=== PATIENT | male | born 1980 | race Caucasian/White ===

== ENCOUNTER 2016-07-21 17:49 | Emergency (ER) | payer BC ==
[~2016-07-21] VITALS: Ht 182.9 cm; Wt 77.3 kg
[~2016-07-21 17:49] MED LIST: ADVAIR 250/28 DISKU1 IH; ADVIL200 MG PO; ALLEGRA ODT30 MG PO; AMOXICILLIN 8751 TAB PO; BALSALAZIDE DI750 MG PO; CETIRIZINE; CLARITIN REDITA10 MG PO; COLOZAL; CONSTULOSE 20G/30ML PO; DUO-KAPS1 CAP PO; LAMICTAL 25MG T25 MG PO; LEVAQUIN 5500 MG/TA1 PO; MILK THISTLE150 MG PO; MILK THISTLE500 MG; MULTIPLE VITAMI1 CAP PO; NATURE'S BLEND100 M2 PO; OXYCODONE5 M1 PO; PROBIOTIC FORMU1 CAP PO; REVIA 50MG TABL50 MG PO; VALIUM 5MG T5 MG/TAB PO; XIFAXAN550 MG PO; [UNRECOGNIZED DRUG - OTHER]
[2016-07-21 18:05] VITALS: TEMP 98.1
[2016-07-21 18:57] LABS: BASO % 1.1 % (0.0-2.0); EOS # 0.2 (0.0-0.7); EOS % 6.4 % (0-4.0); GRAN # 1.3 (1.4-6.5); HEMATOCRIT 40.1 % (42.0-52.0); HEMOGLOBIN 14.1 g/dl (13.5-18.0); LYMPH # 1.1 (1.2-3.4); LYMPH % 37.6 % (20.0-51.0); MEAN CELL VOLUME 95 fl (80.0-100.0); MEAN CORPUSCULAR HEMOGLOBIN 34 pg (27.0-31.0); MEAN CORPUSCULAR HGB CONC 35 g/dl (33.0-37.0); MEAN PLATELET VOLUME 9.8 fl (7.4-10.4); MONO # 0.3 (0.1-0.6); MONO % 9.9 % (1.7-9.3); PLATELET COUNT 159 K/mm3 (130-400); RED BLOOD COUNT 4.21 M/mm3 (4.20-5.60); REDCELL DISTRIBUTION WIDTH-CV 13.2 % (11.5-14.5); WHITE BLOOD COUNT 2.8 K/mm3 (4.8-10.8)
[2016-07-21 19:02] LABS: INR 0.8 (0.8-3.0); PROTHROMBIN TIME 9.2 SECONDS (9.7-12.8)
[2016-07-21 19:05] LABS: PARTIAL THROMBOPLASTIN TIME 31.1 SECONDS (26.0-37.0)
[2016-07-21 19:10] LABS: ADJUSTED CALCIUM 8.1 mg/dL (8.4-10.2); ALBUMIN 4.1 gm/dL (3.5-5.0); BILIRUBIN,TOTAL 1.5 mg/dL (0.0-1.0); CALCIUM 8.2 mg/dL (8.4-10.2); CREATININE, serum 0.72 mg/dL (0.66-1.25); MAGNESIUM 2.1 mg/dL (1.6-2.3); POTASSIUM 3.6 mmol/L (3.4-5.0); TOTAL PROTEIN 7.4 gm/dL (6.4-8.2)
[2016-07-21 19:12] LABS: ARTERIAL BLOOD GAS pH 7.37 (7.35-7.45)
[2016-07-21 19:13] LABS: ALLEN TEST YES; ALLENS TEST RESULT PASS; ARTERIAL BLD GAS O2 SATURATION 97.4 % (92-100); ARTERIAL BLD GAS TCO2 CT 27.8; ARTERIAL BLOOD GAS BASE EXCESS 0.6 (-2-2); ARTERIAL BLOOD GAS HCO3 26.3 meq/L (22-26); ARTERIAL BLOOD GAS PO2 122.4 mmHg (80-100); ATS? YES
[2016-07-22 08:28] VITALS: BP 139/77; PULSE 87
== END 2016-07-22 08:28 | disposition home or self-care (01) ==
LOC: COL.ER 17:49
PROVIDERS: Emergency Medicine
DX: F10.220 Alcohol dependence with intoxication, uncomplicated (principal); Y90.8 Blood alcohol level of 240 mg/100 ml or more
CPT/HCPCS: J3411; J7030

== ENCOUNTER 2016-10-11 15:02 | Emergency (ER) | payer BC ==
[~2016-10-11] VITALS: Ht 177.8 cm; Wt 69.1 kg
[2016-10-11 15:04] VITALS: TEMP 97.8
[2016-10-11 16:19] LABS: ADJUSTED CALCIUM 9.5 mg/dL (8.4-10.2); ALANINE AMINOTRANSFERASE 41 U/L (21-72); ALBUMIN 4.2 gm/dL (3.5-5.0); ALKALINE PHOSPHATASE 432 U/L (50-136); ANION GAP 10 mmol/L (7-16); BILIRUBIN,TOTAL 1.8 mg/dL (0.0-1.0); BLOOD UREA NITROGEN 10 mg/dL (9-20); CALCIUM 9.7 mg/dL (8.4-10.2); CARBON DIOXIDE 30 mmol/L (22-30); CHLORIDE 98 mmol/L (98-107); CREATININE, serum 0.65 mg/dL (0.66-1.25); GLUCOSE 177 mg/dL (74-106); LIPASE 78 U/L (23-300); MAGNESIUM 1.8 mg/dL (1.6-2.3); PHOSPHOROUS 4.1 mg/dL (2.5-4.5); SODIUM 138 mmol/L (137-145); TOTAL PROTEIN 6.8 gm/dL (6.4-8.2)
[2016-10-11 16:20] LABS: BASO % 0.6 % (0.0-2.0); EOS % 0.3 % (0-4.0); GRAN # 2.5 (1.4-6.5); GRAN % 70.5 % (42.2-75.2); LYMPH # 0.7 (1.2-3.4); LYMPH % 18.7 % (20.0-51.0); MEAN CELL VOLUME 93 fl (80.0-100.0); MEAN CORPUSCULAR HEMOGLOBIN 33 pg (27.0-31.0); MEAN CORPUSCULAR HGB CONC 35 g/dl (33.0-37.0); MEAN PLATELET VOLUME 10.2 fl (7.4-10.4); MONO # 0.3 (0.1-0.6); MONO % 9.6 % (1.7-9.3); PLATELET COUNT 218 K/mm3 (130-400); RED BLOOD COUNT 3.94 M/mm3 (4.20-5.60); REDCELL DISTRIBUTION WIDTH-CV 12.8 % (11.5-14.5); WHITE BLOOD COUNT 3.5 K/mm3 (4.8-10.8)
[2016-10-11 16:28] LABS: HEMATOCRIT 36.7 % (42.0-52.0)
[2016-10-11 16:30] LABS: PROTHROMBIN TIME 11.5 SECONDS (9.7-12.8)
[2016-10-11] MEDS ORDERED: ANTABUSE500 MG PO (16:30)
[2016-10-11] MEDS ORDERED: DESYREL 50MG50 MG PO (16:30)
[2016-10-11 16:35] LABS: PH 7 (5-8); SQUAMOUS EPITHELIAL None Seen /hpf; URINE APPEARANCE Cloudy; URINE BACTERIA None Seen /hpf; URINE BILIRUBIN Negative (NEGATIVE); URINE BLOOD Negative (NEGATIVE); URINE COLOR Amber; URINE GLUCOSE Negative (NEGATIVE); URINE KETONE Negative (NEGATIVE); URINE UROBILINOGEN Negative (NEGATIVE); URINE WBC None Seen /hpf
[2016-10-11 16:36] LABS: AMPHETAMINE URINE NEGATIVE; BARBITURATES URINE NEGATIVE; BENZODIAZEPINES URINE NEGATIVE; BUPRENORPHINE URINE NEGATIVE; METHADONE URINE NEGATIVE; OPIATES URINE NEGATIVE; OXYCODONE URINE NEGATIVE; PHENCYCLIDINE URINE NEGATIVE; PROPOXYPHENE URINE NEGATIVE; THC CANNABINOIDS URINE NEGATIVE
[2016-10-12 00:04] VITALS: BP 154/96; PULSE 58
== END 2016-10-12 00:06 ==
LOC: COL.ER 15:02
PROVIDERS: Family Medicine
DX: F29 Unspecified psychosis not due to a substance or known physiological condition (principal); R41.82 Altered mental status, unspecified
CPT/HCPCS: J7030

== ENCOUNTER → 2016-10-27 | Outpatient (CLI) | payer BC ==
[~2016-10-27] MED LIST changes: +ANTABUSE500 MG PO; +DESYREL 50MG50 MG PO
== END ==
LOC: BHSO 15:33
DX: F41.1 Generalized anxiety disorder (principal)

== ENCOUNTER → 2016-12-08 | Outpatient (CLI) | payer BC | LOC: BHSO 15:15 | DX: F41.1 Generalized anxiety disorder (principal) ==

== ENCOUNTER 2017-06-22 08:10 | Day surgery (SDC) | payer BC ==
[~2017-06-22] VITALS: Ht 177.8 cm; Wt 71.5 kg
[2017-06-22 08:36] VITALS: BP 115/86; PULSE 72; TEMP 98.1
[2017-06-22 09:25] VITALS: BP 112/70; PULSE 72; TEMP 97
[2017-06-22 09:40] VITALS: BP 104/74; PULSE 71
[2017-06-22 09:55] VITALS: BP 108/72; PULSE 69
[2017-06-22 10:15] VITALS: BP 112/82; PULSE 68
== END 2017-06-22 11:00 ==
LOC: SDCO 08:10
DX: K51.90 Ulcerative colitis, unspecified, without complications (principal); K63.89 Other specified diseases of intestine; J45.909 Unspecified asthma, uncomplicated; R19.7 Diarrhea, unspecified; K83.0 Cholangitis; R94.5 Abnormal results of liver function studies; R74.8 Abnormal levels of other serum enzymes; L29.9 Pruritus, unspecified; R16.0 Hepatomegaly, not elsewhere classified; G93.40 Encephalopathy, unspecified
CPT/HCPCS: J2250; J2405; J3010; J7030

== ENCOUNTER 2017-09-20 16:26 | Emergency (ER) | payer BC ==
[~2017-09-20] VITALS: Ht 177.8 cm; Wt 77.3 kg
[2017-09-20 16:30] VITALS: TEMP 97.9
[2017-09-20 17:05] LABS: BASO # 0.1 (0.0-0.2); EOS # 0.1 (0.0-0.7); EOS % 1.8 % (0-4.0); GRAN # 3.1 (1.4-6.5); GRAN % 60.9 % (42.2-75.2); HEMATOCRIT 41.4 % (42.0-52.0); HEMOGLOBIN 14.4 g/dl (13.5-18.0); LYMPH # 1.6 (1.2-3.4); LYMPH % 31.6 % (20.0-51.0); MEAN CELL VOLUME 91 fl (80.0-100.0); MEAN CORPUSCULAR HEMOGLOBIN 32 pg (27.0-31.0); MEAN CORPUSCULAR HGB CONC 35 g/dl (33.0-37.0); MEAN PLATELET VOLUME 10.4 fl (7.4-10.4); MONO # 0.2 (0.1-0.6); MONO % 4.5 % (1.7-9.3); PLATELET COUNT 187 K/mm3 (130-400); PROTHROMBIN TIME 11.3 SECONDS (9.7-12.8); RED BLOOD COUNT 4.53 M/mm3 (4.20-5.60); REDCELL DISTRIBUTION WIDTH-CV 12.3 % (11.5-14.5)
[2017-09-20 17:15] LABS: ALANINE AMINOTRANSFERASE 151 U/L (21-72); ALBUMIN 4.4 gm/dL (3.5-5.0); ALKALINE PHOSPHATASE 383 U/L (50-136); ANION GAP 15 mmol/L (7-16); AST,SGOT 114 U/L (15-37); BILIRUBIN,TOTAL 1.2 mg/dL (0.0-1.0); BLOOD UREA NITROGEN 12 mg/dL (9-20); CALCIUM 8.7 mg/dL (8.4-10.2); CARBON DIOXIDE 26 mmol/L (22-30); CHLORIDE 105 mmol/L (98-107); CREATININE, serum 0.72 mg/dL (0.66-1.25); GLUCOSE 98 mg/dL (74-106); LIPASE 203 U/L (23-300); POTASSIUM 3.6 mmol/L (3.4-5.0); SODIUM 146 mmol/L (137-145); TOTAL PROTEIN 7.5 gm/dL (6.4-8.2)
[2017-09-20 17:47] LABS: AMMONIA < 9 umol/L (11-35)
[2017-09-20 18:31] LABS: COLLECTION METHOD CLEAN CATCH
[2017-09-20 18:38] LABS: PH 6 (5-8); SQUAMOUS EPITHELIAL None Seen /hpf; URINE APPEARANCE Clear; URINE BACTERIA None Seen /hpf; URINE BILIRUBIN Negative (NEGATIVE); URINE BLOOD Negative (NEGATIVE); URINE COLOR Straw; URINE GLUCOSE Negative (NEGATIVE); URINE KETONE Negative (NEGATIVE); URINE LEUKOCYTE ESTERASE Negative (NEGATIVE); URINE NITRATE Negative (NEGATIVE); URINE PROTEIN(semi-quant) Negative (NEGATIVE); URINE RBC None Seen /hpf; URINE UROBILINOGEN Negative (NEGATIVE)
[2017-09-20 21:18] VITALS: BP 132/74; PULSE 90
== END 2017-09-20 21:18 | disposition home or self-care (01) ==
LOC: COL.ER 16:26
PROVIDERS: Emergency Medicine
DX: F10.129 Alcohol abuse with intoxication, unspecified (principal); K83.0 Cholangitis; Y90.8 Blood alcohol level of 240 mg/100 ml or more; Z87.19 Personal history of other diseases of the digestive system
CPT/HCPCS: J7030

== ENCOUNTER 2018-09-13 08:05 | Day surgery (SDC) | payer BC ==
[~2018-09-13] VITALS: Ht 177.8 cm; Wt 74.1 kg
[2018-09-13] MEDS ORDERED: ZYRTEC 10MG10 MG PO (08:45)
[2018-09-13] MEDS ORDERED: CLARITIN 1010 MG/TAB PO (08:45)
[2018-09-13 09:27] VITALS: BP 126/87; PULSE 67; TEMP 98.7
[2018-09-13 10:55] VITALS: BP 117/81; PULSE 67; TEMP 97.8
[2018-09-13 11:10] VITALS: BP 121/78; PULSE 93
[2018-09-13 11:25] VITALS: BP 113/90; PULSE 76
--- NOTE | 2018-09-13 11:38 | NUR ---
Patient arrives from OR via cart. VS started. juice, muffin and pudding given. cALL LIGHT WITHIN REACH. WILL CONTINUE TO MONITOR.
[2018-09-13 11:40] VITALS: BP 121/78; PULSE 78
--- NOTE | 2018-09-13 11:55 | NUR ---
PATIENT LEFT AMBULATORY WITH STEADY GAIT. DISCHARGE INSTRUCTIONS GIVEN, VERBALIZED UNDERSTANDING.
== END 2018-09-13 11:40 | disposition home or self-care (01) ==
LOC: SDCO 08:05
DX: K51.90 Ulcerative colitis, unspecified, without complications (principal); K63.89 Other specified diseases of intestine; K83.01 Primary sclerosing cholangitis; J42 Unspecified chronic bronchitis; R17 Unspecified jaundice; Z79.899 Other long term (current) drug therapy; G93.40 Encephalopathy, unspecified; R06.83 Snoring
CPT/HCPCS: J2250; J2704; J3010; J7120

== ENCOUNTER 2018-10-13 11:44 | Emergency (ER) | payer BC ==
[~2018-10-13] VITALS: Ht 175.3 cm; Wt 75.0 kg
[~2018-10-13 11:44] MED LIST changes: +CLARITIN 1010 MG/TAB PO; +ZYRTEC 10MG10 MG PO
[2018-10-13 12:02] VITALS: TEMP 99.1
[2018-10-13] MEDS ORDERED: SYNTHROID 0.10.15 MG (12:16)
[2018-10-13] MEDS ORDERED: KAPSPARGO SPRI100 MG (12:16)
[2018-10-13] MEDS ORDERED: MIRALAX PA17 GM/Dose (12:17)
[2018-10-13] MEDS ORDERED: APRESOLINE 25MG25 MG (12:17)
[2018-10-13] MEDS ORDERED: PLAVIX 75MG TAB75 MG (12:17)
[2018-10-13] MEDS ORDERED: LEXAPRO 10MG10 MG (12:17)
[2018-10-13] MEDS ORDERED: BENICAR40 MG (12:18)
[2018-10-13] MEDS ORDERED: MIRAPEX 1MG (12:18)
[2018-10-13] MEDS ORDERED: ASPIRIN 81M81 MG/TA2 (12:18)
[2018-10-13] MEDS ORDERED: ZOCOR 20MG20 MG (12:18)
[2018-10-13] MEDS ORDERED: SEROQUEL 2525 MG/TAB (12:19)
[2018-10-13] MEDS ORDERED: PROSCAR 5MG5 MG (12:19)
[2018-10-13] MEDS ORDERED: FLOMAX 0.40.4 MG/CAP (12:19)
[2018-10-13] MEDS ORDERED: PROTONIX 40MG T40 MG (12:19)
[2018-10-13 12:29] LABS: BASO % 0.9 % (0.0-2.0); EOS % 0.3 % (0-4.0); GRAN # 2.9 (1.4-6.5); GRAN % 83.4 % (42.2-75.2); HEMATOCRIT 41.2 % (42.0-52.0); HEMOGLOBIN 14.5 g/dl (13.5-18.0); LYMPH # 0.2 (1.2-3.4); LYMPH % 6.6 % (20.0-51.0); MEAN CELL VOLUME 95 fl (80.0-100.0); MEAN CORPUSCULAR HEMOGLOBIN 33 pg (27.0-31.0); MEAN CORPUSCULAR HGB CONC 35 g/dl (33.0-37.0); MEAN PLATELET VOLUME 9.8 fl (7.4-10.4); MONO # 0.3 (0.1-0.6); MONO % 8.5 % (1.7-9.3); PLATELET COUNT 116 K/mm3 (130-400); RED BLOOD COUNT 4.35 M/mm3 (4.20-5.60)
[2018-10-13 12:43] LABS: ALBUMIN 4.8 gm/dL (3.5-5.0); BILIRUBIN,TOTAL 7.1 mg/dL (0.0-1.0); C-REACTIVE PROTEIN 0.5 mg/dL (0.0-0.9); CALCIUM 9.7 mg/dL (8.4-10.2); CREATININE, serum 0.67 (0.66-1.25); POTASSIUM 4.3 mmol/L (3.4-5.0)
[2018-10-13 13:03] LABS: INR 1.1 (0.8-3.0); PROTHROMBIN TIME 12.9 SECONDS (9.7-12.8)
[2018-10-13 13:32] LABS: COLLECTION METHOD CLEAN CATCH
[2018-10-13 13:37] LABS: MUCOUS Present /lpf; PH 7 (5-8); SQUAMOUS EPITHELIAL None Seen /hpf; URINE APPEARANCE Clear; URINE BACTERIA Rare /hpf; URINE BILIRUBIN Positive (NEGATIVE); URINE BLOOD Negative (NEGATIVE); URINE COLOR Amber; URINE GLUCOSE Negative (NEGATIVE); URINE KETONE 1+ (NEGATIVE); URINE LEUKOCYTE ESTERASE Negative (NEGATIVE); URINE NITRATE Negative (NEGATIVE); URINE PROTEIN(semi-quant) 1+ (NEGATIVE); URINE RBC 0-2 /hpf; URINE UROBILINOGEN >=4.0 mg/dL (NEGATIVE)
[2018-10-13] MEDS ORDERED: ZOFRAN ODT4 MG PO (14:51)
[2018-10-13 15:00] VITALS: BP 138/82; PULSE 86
== END 2018-10-13 15:01 | disposition home or self-care (01) ==
LOC: COL.ER 11:44
PROVIDERS: Family Medicine
DX: K83.09 Other cholangitis (principal); Z79.02 Long term (current) use of antithrombotics/antiplatelets; Z79.82 Long term (current) use of aspirin; Z87.19 Personal history of other diseases of the digestive system
CPT/HCPCS: J2405; J7030; Q9967

== ENCOUNTER 2021-09-22 14:49 | Emergency (ER) | payer SELFPAY ==
[~2021-09-22] VITALS: Ht 180.3 cm; Wt 72.7 kg
[~2021-09-22 14:49] MED LIST changes: +APRESOLINE 25MG25 MG; +ASPIRIN 81M81 MG/TA2; +BENICAR40 MG; +FLOMAX 0.40.4 MG/CAP; +KAPSPARGO SPRI100 MG; +LEXAPRO 10MG10 MG; +MIRALAX PA17 GM/Dose; +MIRAPEX 1MG; +PLAVIX 75MG TAB75 MG; +PROSCAR 5MG5 MG; +PROTONIX 40MG T40 MG; +SEROQUEL 2525 MG/TAB; +SYNTHROID 0.10.15 MG; +ZOCOR 20MG20 MG; +ZOFRAN ODT4 MG PO
[2021-09-22 15:31] VITALS: TEMP 97.5
[2021-09-22 17:17] LABS: MEAN CELL VOLUME 100 fl (80.0-100.0); MEAN CORPUSCULAR HGB CONC 35 g/dl (33.0-37.0); MEAN PLATELET VOLUME 9.8 fl (7.4-10.4); PLATELET COUNT 181 K/mm3 (130-400); RED BLOOD COUNT 2.46 M/mm3 (4.20-5.60); REDCELL DISTRIBUTION WIDTH-CV 16.2 % (11.5-14.5)
[2021-09-22 17:18] LABS: HEMATOCRIT 24.6 % (42.0-52.0); HEMOGLOBIN 8.7 g/dl (13.5-18.0); MEAN CORPUSCULAR HEMOGLOBIN 35 pg (27-31)
[2021-09-22 17:26] LABS: INR 1.6 (0.8-3.0); PROTHROMBIN TIME 17.6 SECONDS (9.7-12.8)
[2021-09-22 17:32] LABS: MAGNESIUM 1.9 mg/dL (1.6-2.6); PHOSPHOROUS 2.3 mg/dL (2.3-4.7)
[2021-09-22 17:33] LABS: LACTIC ACID 2.2 mmol/L (0.5-2.0)
[2021-09-22 18:00] LABS: BAND 11 % (0-10); LYMPHOCYTE 7 % (20.0-51.0); MYELOCYTE 2 % (0-0); NEUTROPHILS 77 % (42.0-75.2); PLATELET ESTIMATE NORMAL (NORMAL)
[2021-09-22 18:01] LABS: ANISOCYTOSIS 1+
[2021-09-22 18:19] LABS: COLLECTION METHOD CLEAN CATCH
[2021-09-22 18:28] LABS: ALANINE AMINOTRANSFERASE 54 U/L (0-55); ALBUMIN 1.7 gm/dL (3.5-5.0); ALKALINE PHOSPHATASE 1106 U/L (40-150); ANION GAP 13 mmol/L (7-16); AST,SGOT 111 U/L (5-34); BLOOD UREA NITROGEN 26 mg/dL (9-21); CARBON DIOXIDE 16 mmol/L (22-29); CHLORIDE 101 mmol/L (98-107); CREATININE, serum 1.74 mg/dL (0.72-1.25); GLUCOSE 125 mg/dL (70-99); POTASSIUM 3.3 mmol/L (3.5-4.5); SODIUM 130 mmol/L (136-145); TOTAL PROTEIN 5.7 gm/dL (6.2-8.1)
[2021-09-22 18:30] LABS: MUCOUS Present (NOT PRESENT); PH 6 (5-8); SQUAMOUS EPITHELIAL None Seen /hpf (0-10); URINE APPEARANCE Clear (CLEAR/HAZY); URINE BACTERIA None Seen /hpf (NONE SEEN); URINE BILIRUBIN Positive (NEGATIVE); URINE BLOOD Negative (NEGATIVE); URINE COLOR Amber (YELLOW); URINE GLUCOSE Negative (NEGATIVE); URINE KETONE Trace (NEGATIVE); URINE LEUKOCYTE ESTERASE Negative (NEGATIVE); URINE NITRATE Negative (NEGATIVE); URINE PROTEIN(semi-quant) 1+ (NEGATIVE); URINE RBC None Seen /hpf (0-2); URINE UROBILINOGEN >=4.0 (NEGATIVE)
[2021-09-22 18:31] LABS: TROPONIN-I < 0.010 ng/mL (0.00-0.033)
[2021-09-22 20:07] VITALS: BP 115/64; PULSE 92
== END 2021-09-22 20:10 | disposition home or self-care (01) ==
LOC: COL.ER 14:49
PROVIDERS: Emergency Medicine
DX: R05.9 Cough, unspecified (principal)
CPT/HCPCS: J7040

== ENCOUNTER → 2021-10-04 | Outpatient (CLI) | payer SELFPAY | LOC: ZCOL.LAB 10:47 | DX: Z20.822 Contact with and (suspected) exposure to COVID-19 (principal) ==

== ENCOUNTER 2022-01-11 11:17 | Outpatient (CLI) | payer OTHER, MEDICAID ==
[~2022-01-11] VITALS: Ht 180.3 cm; Wt 91.0 kg
[~2022-01-11 11:17] MED LIST changes: +FOLIC ACID 11 MG/TA1 PO; +K-DUR20 MEQ PO; +ONE-A-DAY ESSE1 EACH PO; +PROAMATINE10 MG PO; +PROTONIX 40MG T40 MG PO
[2022-01-11 11:47] VITALS: BP 142/90; PULSE 90; TEMP 98.2
[2022-01-11 13:00] VITALS: BP 144/75; PULSE 81; TEMP 97.5
[2022-01-11 13:21] LABS: PERITONEAL -POLYMORPHONUCLEAR 6.3 % (0-25)
== END 2022-01-11 16:00 | disposition home or self-care (01) ==
LOC: COL.RAD 11:17
PROVIDERS: Internal Medicine
DX: K70.31 Alcoholic cirrhosis of liver with ascites (principal); K83.01 Primary sclerosing cholangitis
CPT/HCPCS: P9047

== ENCOUNTER 2022-01-26 14:32 | Outpatient (CLI) | payer OTHER, MEDICAID ==
[~2022-01-26] VITALS: Ht 180.3 cm; Wt 98.6 kg
[2022-01-26 15:24] VITALS: BP 151/88; PULSE 86; TEMP 97.9
[2022-01-26 15:49] LABS: INR 1.1 (0.8-3.0); PROTHROMBIN TIME 13.1 SECONDS (9.7-12.8)
[2022-01-26 15:58] LABS: BASO # 0.1 K/mm3 (0.0-0.2); BASO % 1.1 % (0.0-2.0); EOS # 0.1 K/mm3 (0.0-0.7); EOS % 1.6 % (0.0-4.0); GRAN # 5.8 K/mm3 (1.4-6.5); GRAN % 76.1 % (42.2-75.2); LYMPH # 0.9 K/mm3 (1.2-3.4); LYMPH % 11.5 % (20.0-51.0); MEAN CELL VOLUME 100 fl (80.0-100.0); MEAN CORPUSCULAR HGB CONC 34 g/dl (33.0-37.0); MEAN PLATELET VOLUME 10.2 fl (7.4-10.4); MONO # 0.7 K/mm3 (0.1-0.6); PLATELET COUNT 230 K/mm3 (130-400); RED BLOOD COUNT 2.62 M/mm3 (4.20-5.60); REDCELL DISTRIBUTION WIDTH-CV 19.4 % (11.5-14.5)
[2022-01-26 15:59] LABS: HEMATOCRIT 26.3 % (42.0-52.0); HEMOGLOBIN 8.8 g/dl (13.5-18.0); MEAN CORPUSCULAR HEMOGLOBIN 34 pg (27-31)
[2022-01-26 16:03] LABS: ALBUMIN 2.5 gm/dL (3.5-5.0); BILIRUBIN,TOTAL 10.4 mg/dL (0.2-1.2); CALCIUM 8.4 mg/dL (8.4-10.2); CREATININE, serum 1.13 mg/dL (0.72-1.25); POTASSIUM 3.5 mmol/L (3.5-4.5); TOTAL PROTEIN 6.1 gm/dL (6.2-8.1)
[2022-01-26 17:08] VITALS: BP 150/88; PULSE 78
[2022-01-26 17:11] LABS: PERITONEAL -POLYMORPHONUCLEAR 6.5 % (0-25)
--- NOTE | 2022-01-26 19:30 | NUR ---
Pt is amb to exit with steady gait after albumin infusion. Pt has had some persistent drainage from paracentesis site on left lower abd. I changed dressing 2 more times during his stay in [facility], drainage is clear/yellow tinted drainage, with a small amt pink on gauze when saturated. Pt stated that he still felt "full", and that he was concerned they "stopped early" as on ly 6 liters had been drained. As I am unable to contact a radiologist at this time, I provided pt with dressing material for several dressing changes and instructed him to keep area very clean and to call agronomy internship or [facility] rn in am if drainage persists. I advised that infection was my biggest concern and to seek emergent care if needed.
== END 2022-01-26 19:53 | disposition home or self-care (01) ==
LOC: COL.RAD 14:32
PROVIDERS: Internal Medicine
DX: K70.31 Alcoholic cirrhosis of liver with ascites (principal); K83.01 Primary sclerosing cholangitis
CPT/HCPCS: P9047

== ENCOUNTER 2022-02-08 08:30 | Outpatient (CLI) | payer OTHER, MEDICAID ==
[~2022-02-08] VITALS: Ht 180.3 cm; Wt 87.3 kg
[2022-02-08 08:51] LABS: MEAN CELL VOLUME 99 fl (80.0-100.0); MEAN CORPUSCULAR HGB CONC 34 g/dl (33.0-37.0); MEAN PLATELET VOLUME 10.5 fl (7.4-10.4); PLATELET COUNT 246 K/mm3 (130-400); RED BLOOD COUNT 2.84 M/mm3 (4.20-5.60); REDCELL DISTRIBUTION WIDTH-CV 15.6 % (11.5-14.5)
[2022-02-08 08:53] VITALS: BP 144/87; PULSE 100; TEMP 99
[2022-02-08 09:04] LABS: HEMOGLOBIN 9.5 g/dl (13.5-18.0); INR 1.2 (0.8-3.0); MEAN CORPUSCULAR HEMOGLOBIN 33 pg (27-31); PROTHROMBIN TIME 13.9 SECONDS (9.7-12.8)
[2022-02-08 09:12] LABS: ALBUMIN 2.5 gm/dL (3.5-5.0); BILIRUBIN,TOTAL 8.6 mg/dL (0.2-1.2); CALCIUM 8.1 mg/dL (8.4-10.2); CREATININE, serum 1.12 mg/dL (0.72-1.25); POTASSIUM 3.3 mmol/L (3.5-4.5); TOTAL PROTEIN 5.9 gm/dL (6.2-8.1)
[2022-02-08 11:00] VITALS: BP 144/82; PULSE 76; TEMP 99
== END 2022-02-08 14:35 ==
LOC: COL.RAD 08:30
PROVIDERS: Internal Medicine
DX: K72.90 Hepatic failure, unspecified without coma (principal); K83.01 Primary sclerosing cholangitis
CPT/HCPCS: P9047

== ENCOUNTER 2022-02-16 08:03 | Outpatient (CLI) | payer OTHER, MEDICAID ==
--- NOTE | 2022-02-13 08:33 | NUR ---
Left message on machine with instructions.
[~2022-02-16] VITALS: Ht 180.3 cm; Wt 78.4 kg
[2022-02-16 08:16] VITALS: BP 149/94; PULSE 89; TEMP 98.9
[2022-02-16 08:23] LABS: HEMOGLOBIN 10.6 g/dl (13.5-18.0); MEAN CELL VOLUME 97 fl (80.0-100.0); MEAN CORPUSCULAR HEMOGLOBIN 33 pg (27-31); MEAN CORPUSCULAR HGB CONC 34 g/dl (33.0-37.0); MEAN PLATELET VOLUME 10.7 fl (7.4-10.4); PLATELET COUNT 163 K/mm3 (130-400); REDCELL DISTRIBUTION WIDTH-CV 14.1 % (11.5-14.5)
[2022-02-16 08:35] LABS: INR 1.2 (0.8-3.0); PROTHROMBIN TIME 13.7 SECONDS (9.7-12.8)
[2022-02-16 08:52] LABS: BASOPHIL 1 % (0-2); EOSINOPHIL 2 % (0-4); LYMPHOCYTE 17 % (20.0-51.0); NEUTROPHILS 72 % (42.0-75.2); PLATELET ESTIMATE NORMAL (NORMAL)
[2022-02-16 08:56] LABS: ALBUMIN 2.8 gm/dL (3.5-5.0); BILIRUBIN,TOTAL 9.5 mg/dL (0.2-1.2); CALCIUM 8.3 mg/dL (8.4-10.2); CREATININE, serum 1.33 mg/dL (0.72-1.25); TOTAL PROTEIN 6.4 gm/dL (6.2-8.1)
[2022-02-16 09:44] LABS: POTASSIUM 2.7 mmol/L (3.5-4.5)
[2022-02-16 09:47] VITALS: BP 142/86; PULSE 82
[2022-02-16 10:05] LABS: PERITONEAL -POLYMORPHONUCLEAR 18.9 % (0-25)
--- NOTE | 2022-02-16 12:10 | NUR ---
Pt escorted out via wheelchair by this nurse.
== END 2022-02-16 12:19 ==
LOC: COL.RAD 08:03
PROVIDERS: Internal Medicine
DX: K83.01 Primary sclerosing cholangitis (principal); K70.31 Alcoholic cirrhosis of liver with ascites; K72.90 Hepatic failure, unspecified without coma
CPT/HCPCS: P9047

== ENCOUNTER 2022-02-27 11:43 | Outpatient (CLI) | payer OTHER, MEDICAID ==
[~2022-02-27] VITALS: Ht 180.3 cm; Wt 76.0 kg
[2022-02-27 13:08] VITALS: BP 140/95; PULSE 84; TEMP 99
[2022-02-27 13:45] VITALS: BP 135/85; PULSE 83; TEMP 98.5
[2022-02-27 13:57] LABS: PERITONEAL -POLYMORPHONUCLEAR 10.6 % (0-25)
== END 2022-02-27 14:59 ==
LOC: COL.RAD 11:43
PROVIDERS: Internal Medicine
DX: K74.60 Unspecified cirrhosis of liver (principal); K83.01 Primary sclerosing cholangitis
CPT/HCPCS: P9047

== ENCOUNTER → 2022-03-21 | Outpatient (CLI) | payer OTHER, MEDICAID ==
[~2022-03-21] VITALS: Ht 180.3 cm; Wt 79.9 kg
[2022-03-21 10:26] VITALS: BP 156/90; PULSE 88; TEMP 98.8
[2022-03-21 10:39] LABS: BASO # 0.1 K/mm3 (0.0-0.2); BASO % 1.7 % (0.0-2.0); EOS # 0.2 K/mm3 (0.0-0.7); EOS % 3.6 % (0.0-4.0); GRAN % 69.6 % (42.2-75.2); LYMPH # 0.7 K/mm3 (1.2-3.4); LYMPH % 12.3 % (20.0-51.0); MEAN CELL VOLUME 96 fl (80.0-100.0); MEAN CORPUSCULAR HGB CONC 34 g/dl (33.0-37.0); MEAN PLATELET VOLUME 9.7 fl (7.4-10.4); MONO # 0.7 K/mm3 (0.1-0.6); MONO % 12.5 % (1.7-9.3); PLATELET COUNT 221 K/mm3 (130-400); RED BLOOD COUNT 2.79 M/mm3 (4.20-5.60)
[2022-03-21 10:40] LABS: HEMATOCRIT 26.9 % (42.0-52.0); HEMOGLOBIN 9.2 g/dl (13.5-18.0); MEAN CORPUSCULAR HEMOGLOBIN 33 pg (27-31)
[2022-03-21 10:45] LABS: INR 1.2 (0.8-3.0); PROTHROMBIN TIME 14.1 SECONDS (9.7-12.8)
[2022-03-21 10:57] LABS: ALBUMIN 2.8 gm/dL (3.5-5.0); BILIRUBIN,TOTAL 13.6 mg/dL (0.2-1.2); CALCIUM 8.9 mg/dL (8.4-10.2); CREATININE, serum 1.4 mg/dL (0.72-1.25); POTASSIUM 3.5 mmol/L (3.5-4.5); TOTAL PROTEIN 6.5 gm/dL (6.2-8.1)
[2022-03-21 12:21] VITALS: BP 159/89; PULSE 83
[2022-03-21 12:26] LABS: PERITONEAL -POLYMORPHONUCLEAR 6.8 % (0-25)
== END ==
LOC: COL.RAD 09:29
PROVIDERS: Internal Medicine
DX: K72.90 Hepatic failure, unspecified without coma (principal); K74.60 Unspecified cirrhosis of liver
CPT/HCPCS: P9047

== ENCOUNTER 2022-05-04 08:12 | Outpatient (CLI) | payer OTHER, MEDICAID ==
[~2022-05-04] VITALS: Ht 180.3 cm; Wt 76.0 kg
[2022-05-04 08:30] VITALS: BP 155/101; PULSE 81; TEMP 98.3
[2022-05-04 08:48] LABS: HEMOGLOBIN 10.3 g/dl (13.5-18.0); MEAN CELL VOLUME 93 fl (80.0-100.0); MEAN CORPUSCULAR HEMOGLOBIN 33 pg (27-31); MEAN CORPUSCULAR HGB CONC 35 g/dl (33.0-37.0); MEAN PLATELET VOLUME 10.4 fl (7.4-10.4); PLATELET COUNT 133 K/mm3 (130-400); RED BLOOD COUNT 3.14 M/mm3 (4.20-5.60)
[2022-05-04 08:49] LABS: HEMATOCRIT 29.1 % (42.0-52.0)
[2022-05-04 08:51] LABS: INR 1.2 (0.8-3.0); PROTHROMBIN TIME 13.9 SECONDS (9.7-12.8)
[2022-05-04 09:08] LABS: ALBUMIN 3.4 gm/dL (3.5-5.0); BILIRUBIN,TOTAL 10.7 mg/dL (0.2-1.2); CALCIUM 9.2 mg/dL (8.4-10.2); CREATININE, serum 1.59 mg/dL (0.72-1.25); POTASSIUM 3.2 mmol/L (3.5-4.5); TOTAL PROTEIN 8.3 gm/dL (6.2-8.1)
--- NOTE | 2022-05-04 09:10 | NUR ---
PROCEDURE CANCELLED BY DR LOUISE
== END 2022-05-04 10:48 ==
LOC: COL.RAD 08:12
PROVIDERS: Internal Medicine
DX: K70.31 Alcoholic cirrhosis of liver with ascites (principal); K83.01 Primary sclerosing cholangitis

== ENCOUNTER 2022-11-12 16:31 | Inpatient (IN) | payer OTHER, MEDICAID ==
[~2022-11-12] VITALS: Ht 177.8 cm; Wt 62.8 kg
[2022-11-12 17:09] LABS: MEAN CELL VOLUME 92 fl (80.0-100.0); MEAN CORPUSCULAR HGB CONC 38 g/dl (33.0-37.0); MEAN PLATELET VOLUME 9.7 fl (7.4-10.4); PLATELET COUNT 134 K/mm3 (130-400); RED BLOOD COUNT 2.43 M/mm3 (4.20-5.60); REDCELL DISTRIBUTION WIDTH-CV 14.1 % (11.5-14.5)
[2022-11-12 17:27] LABS: ALBUMIN 2.2 gm/dL (3.5-5.0); CALCIUM 8.6 mg/dL (8.4-10.2); CREATININE, serum 3.06 mg/dL (0.72-1.25); TOTAL PROTEIN 5.9 gm/dL (6.2-8.1)
[2022-11-12 17:29] LABS: BILIRUBIN,TOTAL 35.6 mg/dL (0.2-1.2)
[2022-11-12 17:37] LABS: HEMATOCRIT 22.3 % (42.0-52.0); HEMOGLOBIN 8.5 g/dl (13.5-18.0); MEAN CORPUSCULAR HEMOGLOBIN 35 pg (27-31)
[2022-11-12 17:50] LABS: INR 2.2 (0.8-3.0)
[2022-11-12 18:02] LABS: COLLECTION METHOD CLEAN CATCH
[2022-11-12 18:06] LABS: BASOPHIL 1 % (0-2); LYMPHOCYTE 4 % (20.0-51.0); NEUTROPHILS 88 % (42.0-75.2); PLATELET ESTIMATE NORMAL (NORMAL)
[2022-11-12 18:21] LABS: BUDDING YEAST Present (NOT PRESENT); MUCOUS Present (NOT PRESENT); SQUAMOUS EPITHELIAL 0-2 /hpf (0-10); URINE BACTERIA Rare /hpf (NONE SEEN); URINE RBC 0-2 /hpf (0-2)
[2022-11-12 18:26] LABS: URINE APPEARANCE Clear (CLEAR/HAZY); URINE COLOR OTHER (YELLOW); URINE GLUCOSE TRACE (NEGATIVE); URINE KETONE TRACE (NEGATIVE); URINE PROTEIN(semi-quant) 2+ (NEGATIVE)
[2022-11-12 18:27] LABS: URINE BLOOD 2+ (NEGATIVE); URINE NITRATE Negative (NEGATIVE)
[2022-11-12 19:53] LABS: TRICYCLIC ANTIDEPRESS URINE NEGATIVE
[2022-11-12 20:01] LABS: POTASSIUM 1.4 mmol/L (3.5-4.5)
--- NOTE | 2022-11-12 20:08 | NUR ---
Received report from ED nurse
[2022-11-12 20:31] VITALS: BP 90/65; PULSE 76; TEMP 98.7
--- NOTE | 2022-11-12 20:31 | NUR ---
Patient arrives to ICU room 4 via ED stretcher. He is alert and oriented. Initial BP of 90/65, all other vitals within normal limits; he arrives on room air. Denies any pain or discomfort. Skin and sclera are very jaundice. Generalized bruising and abrasions throughout the body, see admitting assessment. Sandy aware of patient's arrival.
[2022-11-12 20:35] VITALS: PULSE 81
[2022-11-12 20:47] LABS: CALCIUM 8.6 mg/dL (8.4-10.2); CREATININE, serum 2.76 mg/dL (0.72-1.25)
--- NOTE | 2022-11-12 21:00 | NUR ---
Patient's belongings include street clothes, a pair of glasses, a cell phone, a registered nurse, a pocket knife, and wallet. Denies having dentures, partials plates, hearing aids, or removable jewelry on his person.
[2022-11-12 21:12] LABS: POTASSIUM 1.6 mmol/L (3.5-4.5)
--- NOTE | 2022-11-12 22:36 | NUR ---
Report called to Eliot, the receiving nurse at [facility].
[2022-11-12 23:00] VITALS: BP 83/40
--- NOTE | 2022-11-12 23:04 | NUR ---
Patient departs ICU with [facility] at this time. Updated receiving nurse, Eliot.
--- NOTE | 2022-11-13 13:50 | NUR ---
Patient transferred to [facility] before being seen by social work.
== END 2022-11-12 23:04 | disposition short-term general hospital (02) | DRG 433 ==
LOC: COL.ER 16:31 → ICU 18:43
PROVIDERS: Personal Emergency Response Attendant; Physician Assistant; Student in an Organized Health Care Education/Training Program; ADMIT Hospitalist
DX: K70.9 Alcoholic liver disease, unspecified (principal); E87.1 Hypo-osmolality and hyponatremia; N17.9 Acute kidney failure, unspecified; N39.0 Urinary tract infection, site not specified; K51.90 Ulcerative colitis, unspecified, without complications; K74.60 Unspecified cirrhosis of liver; E87.6 Hypokalemia; E86.1 Hypovolemia; E80.6 Other disorders of bilirubin metabolism; F10.10 Alcohol abuse, uncomplicated; K21.9 Gastro-esophageal reflux disease without esophagitis; D64.9 Anemia, unspecified; Z23 Encounter for immunization
CPT/HCPCS: C9113; J0696; J3480; J7030; J7060

== ENCOUNTER 2022-11-30 13:02 | Emergency (ER) | payer OTHER, MEDICAID ==
[~2022-11-30] VITALS: Ht 177.8 cm; Wt 68.2 kg
[2022-11-30 13:43] LABS: MEAN CELL VOLUME 95 fl (80.0-100.0); MEAN CORPUSCULAR HGB CONC 36 g/dl (33.0-37.0); PLATELET COUNT 170 K/mm3 (130-400); RED BLOOD COUNT 2.05 M/mm3 (4.20-5.60); REDCELL DISTRIBUTION WIDTH-CV 17.2 % (11.5-14.5)
[2022-11-30 13:52] LABS: HEMATOCRIT 19.5 % (42.0-52.0); HEMOGLOBIN 7.1 g/dl (13.5-18.0); INR 3.5 (0.8-3.0); MEAN CORPUSCULAR HEMOGLOBIN 35 pg (27-31)
[2022-11-30 13:55] LABS: PARTIAL THROMBOPLASTIN TIME 47.5 SECONDS (26.0-37.0)
[2022-11-30 13:58] LABS: ARTERIAL BLD GAS O2 SATURATION 99.7 % (92-100); ARTERIAL BLD GAS TCO2 CT 16.5; ARTERIAL BLOOD GAS BASE EXCESS -7.5 (-2-2); ARTERIAL BLOOD GAS HCO3 15.8 meq/L (22-26); ARTERIAL BLOOD GAS pH 7.44 (7.35-7.45)
[2022-11-30 13:59] LABS: ARTERIAL BLOOD GAS PCO2 23.6 mmHg (35-45); ARTERIAL BLOOD GAS PO2 157.1 mmHg (80-100)
[2022-11-30 14:08] LABS: ALBUMIN 1.9 gm/dL (3.5-5.0); CALCIUM 8.7 mg/dL (8.4-10.2); CREATININE, serum 5.31 mg/dL (0.72-1.25); MAGNESIUM 1.7 mg/dL (1.6-2.6); TOTAL PROTEIN 5.1 gm/dL (6.2-8.1)
[2022-11-30 14:13] LABS: LACTIC ACID 2.2 mmol/L (0.5-2.0)
[2022-11-30 14:16] LABS: BILIRUBIN,TOTAL 41.1 mg/dL (0.2-1.2)
[2022-11-30 14:24] LABS: BAND 5 % (0-10); EOSINOPHIL 1 % (0-4); LYMPHOCYTE 8 % (20.0-51.0); PLATELET ESTIMATE NORMAL (NORMAL)
[2022-11-30 14:25] LABS: ANISOCYTOSIS 1+
[2022-11-30 14:27] LABS: METAMYELOCYTE 2 % (0-0); NEUTROPHILS 80 % (42.0-75.2)
[2022-11-30 14:39] LABS: BILIRUBIN,DIRECT 32.6 mg/dL (0.0-0.5)
[2022-11-30] MEDS ORDERED: ALDACTONE 25MG25 M1 PO (17:36)
[2022-11-30] MEDS ORDERED: LASIX 20MG TABL20 MG PO (17:37)
[2022-11-30] MEDS ORDERED: KLOR-CON M1010 MEQ PO (17:37)
[2022-11-30 19:00] VITALS: BP 92/70; PULSE 82; TEMP 97.9
== END 2022-11-30 19:00 | disposition short-term general hospital (02) ==
LOC: COL.ER 13:02
PROVIDERS: Emergency Medicine
DX: A41.9 Sepsis, unspecified organism (principal); D64.9 Anemia, unspecified; K72.10 Chronic hepatic failure without coma; E87.6 Hypokalemia; E87.1 Hypo-osmolality and hyponatremia; Z28.311 Partially vaccinated for COVID-19
CPT/HCPCS: C9113; J2543; J3480; J7120